=== PATIENT | female | born 1975 | race Caucasian/White ===

== ENCOUNTER → 2024-04-20 12:54 | Emergency (ER) | payer OTHER, SELFPAY ==
[2024-04-20 12:56] VITALS: BP 128/74
--- NOTE | 2024-04-20 14:11 | ED.GENMED ---
History of Present Illness
General
Chief Complaint: Visual Problem
Time Seen by Provider: 04/20/24 13:28
History of Present Illness
History of Present Illness:
Patient is a 48-year-old woman presenting to the emergency department with vision changes. She states that yesterday she took her first dose of prednisone. Last night noticed that her eyes were bothering her thought it was dry eyes and placed
eyedrops. Today she had a starting reading a book when she noticed she was having some flashers floaters and some sun spots. 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
then she has had some pressure behind her eyes. She has been seeing some floaters. No numbness tingling. No weakness. No dysarthria or word finding difficulty. She is never had migraines before. She currently is back to baseline though has
some floaters. Is never happened to her before. No history of heart problems. No history of stroke she also has a rash that she has been taking doxycycline and prednisone for. She started taking doxycycline 3 days ago. It has drastically
improved. She does state that occurred after mosquito bite. She is following up with PCP regarding it.
Past History
Past History
ED Past Medical History: Other (Mitral valve prolapse) and Other (Holter monitor placed summer 2018)
ED Past Surgical History: Orthopedic
Social History
Tobacco: Non-smoker
Alcohol: None
Drug: None
Family History
Family History: Other; Negative Early CAD
Phy Exam
Physical Exam
Physical Exam:
GENERAL: in no acute distress
HEENT: normocephalic, extraocular movements intact, visual wisdom intact, moist oral mucosa
NECK: normal inspection
RESPIRATORY: no respiratory distress, clear to auscultation bilaterally
CARDIOVASCULAR: regular rate and rhythm
ABDOMEN/: soft, non-distended, non-tender to palpation, no rebound or guarding
EXTREMITIES: non-tender, no edema/swelling, left lower extremity posteriorly with small erythematous area with no bull's-eye lesion, no drainage, no vesicles
NEUROLOGIC: alert and oriented x 3, cranial nerves II-XII intact, right upper extremity strength 5/5, left upper extremity strength 5/5, right lower extremity strength 5/5, left lower extremity strength 5/5, normal sensation to light touch, normal
xsxtwy-ev-ucam and jjlr-wp-wypv, gait not tested formally
SKIN: warm
Course
Orders/Labs/Results
Orders:
Orders
04/20/24 14:24
Diphenhydramine [Benadryl] 25 mg IV NOW STA
Ketorolac [Toradol] 15 mg IV NOW STA
Metoclopramide [Reglan] 10 mg IV NOW STA
04/20/24 14:25
CT Head W/o Iv Contrast Urgent
Comment:
Reason For Exam: headache
04/20/24 15:17
Basic Metabolic Panel Urgent
Complete Blood Count/With Diff Urgent
Lyme Progressive Urgent
Abnormal Lab Results
04/20/24
15:17
WBC 12.5 H 10^3/uL
(4.8-10.8)
RBC 3.85 L 10^6/uL
(4.20-5.40)
Hct 36.3 L %
(37.0-47.0)
MCH 33.8 H pg
(27.0-31.0)
RDW 11.4 L %
(11.5-14.5)
MPV 11.2 H fL
(7.4-10.4)
Absolute Neuts (auto) 10.2 H 10^3/uL
(1.4-6.5)
Neutrophils % 81.4 H %
(42.2-75.2)
Lymphocytes % 13.3 L %
(20.5-51.1)
BUN 19 H mg/dl
(7-17)
Glucose 104 H mg/dl
(70-99)
04/20/24 15:17
04/20/24 15:17
Vital Signs
Initial and Last Documented VS:
Initial Vital Signs
Temp Pulse Resp BP Pulse Ox
99.1 F 101 16 128/74 98
04/20/24 12:56 04/20/24 12:56 04/20/24 12:56 04/20/24 12:56 04/20/24 12:56
Last Documented Vital Signs
Temp Pulse Resp BP Pulse Ox
99.1 F 101 16 128/74 98
04/20/24 12:56 04/20/24 12:56 04/20/24 12:56 04/20/24 12:56 04/20/24 12:56
MDM/Problems Addressed
Differential Diagnosis Includes:
Patient is a 48-year-old woman presenting to the emergency department with vision changes and a headache. Vital signs are unremarkable and exam does not show any neurodeficits.
Patient is complaining of pressure behind her eyes as well as some floaters. Could be is migraine with aura or complex migraine or ocular migraine. Considered TIA though less likely as patient is otherwise healthy. Could be pituitary echopraxia
given the peripheral vision loss bilaterally though it is reassuring that she regained the vision. I did discuss with on-call neurology who is in agreement that it is less likely to be a TIA given that she has no risk factors. Will proceed with
blood work and give a migraine cocktai as well as obtain CT scan of the head.
*Critical Care Note
Total Time (30-74mins, 75-104mins- exclusive of procedures): Not Applicable
Update Note
Update Note:
CT scan of the head without any acute abnormalities. Blood work is notable for white count of 12.5 likely from the skin infection that she is on antibiotics for. Lyme testing pending at this time. After patient received a migraine cocktail
patient states that she immediately felt a relief in both the pressure behind her eyes and the floaters have now resolved. This is likely consistent with a migraine. Given that symptoms have now resolved will discharge at this time with PCP
follow-up. Strict return precautions given
ED Attending Note
-
Portions of this chart may have been created with voice recognition software.� Occasional wrong word or��sound alike� substitutions may have occurred due to the inherent limitations of voice recognition software.
Discharge Plan
Departure
Patient Disposition: Home (Routine Discharge)
Date of Disposition: 04/20/24
Time of Disposition: 17:28
Patient with high blood pressure during this ER visit?: No
Discharge Problem:
Change in vision, Migraine with aura
Instructions: Migraines (DC)
Prescriptions:
No Action
ascorbic acid (vitamin C) [Vitamin C] 500 MG tablet
1,000 mg PO TID
omega 0-eoo-vec-fish oil 1 EACH capsule
2 ea PO BID
cholecalciferol (vitamin D3) 10,000 UNIT tablet
10,000 unit PO DAILY
Calcium
1 tab PO TID
Liver Support
1 tab PO TID
Thyroid Support
2 tab PO DAILY
Referrals:
PRIVATE,PHYSICIAN [Family Provider] -
Activity Restrictions/Additional Instructions:
You were seen in the Emergency Department today for vision changes and pressure behind your eyes. While you were here we performed blood work and CT scan, which was reassuring. Please make sure you follow-up about your lyme results.
We would like for you to follow up with your primary care physician for further evaluation. If you experience fever, worsening of your symptoms, or develop any other new or concerning symptoms, please return to the Emergency Department immediately.
Please see the attached sheet for additional information.
Interventions
Interventions:
*Risk Screen - Suicide Last Done: 04/20/24 12:56
*General Assessment Last Done: 04/20/24 12:56
*Neglect/Abuse Screening Last Done: 04/20/24 12:56
*ED COVID-19 Vaccine History Last Done: 04/20/24 12:56
Discharge Date and Time
Print Language: KOSOVAN
[2024-04-20] MEDS: TORADOL 15 MG IV (15:36)
[2024-04-20] MEDS: BENADRYL 25 MG IV (15:36)
[2024-04-20] MEDS: REGLAN 10 MG IV (15:37)
[2024-04-20 15:53] LABS: % Basophils 0.3 % (0-2); % Eosinophils 0.6 % (0-6); % Immature Granulocytes 0.2 % (0-0.5); % Lymphocytes 13.3 % (20.5-51.1); % Monocytes 4.2 % (1.7-9.3); % Neutrophils 81.4 % (42.2-75.2); Absolute Eosinophils 0.1 10^3/uL (0-0.7); Absolute Lymphocytes 1.7 10^3/uL (1.2-3.4); Absolute Monocytes 0.5 10^3/uL (0.1-0.6); Absolute Neutrophils 10.2 10^3/uL (1.4-6.5); Hematocrit 36.3 % (37.0-47.0); Mean Corp Hgb Conc. 35.8 g/dL (33.0-37.0); Mean Corpuscular Hgb 33.8 pg (27.0-31.0); Mean Corpuscular Volume 94.3 fL (81.0-99.0); Mean Platelet Volume 11.2 fL (7.4-10.4); Nucleated Red Blood Cells % 0 %; Platelet Count 311 10^3/uL (130-400); Red Blood Cell Count 3.85 10^6/uL (4.20-5.40); Red Cell Dist. Width 11.4 % (11.5-14.5); White Blood Cell Count 12.5 10^3/uL (4.8-10.8)
[2024-04-20 16:07] LABS: Blood Urea Nitrogen 19 mg/dl (7-17); Calcium 9.8 mg/dl (8.4-10.2); Carbon Dioxide 23 mmol/L (22-30); Chloride 105 mmol/L (98-107); Glucose 104 mg/dl (70-99); Potassium 4.1 mmol/L (3.5-5.1); Sodium 138 mmol/L (135-145); eGFR > 60.00
[2024-04-22 14:39] LABS: Lyme Antibody Screen, EIA Negative (Negative)
== END | disposition home or self-care (01) ==
LOC: EMR 12:54
PROVIDERS: EMERGENCY PHYSICIAN Student in an Organized Health Care Education/Training Program
DX: G43.109 Migraine with aura, not intractable, without status migrainosus (principal); H53.9 Unspecified visual disturbance
CPT/HCPCS: 99284; 96374; 96375 ×2; 70450; 80048; 85025; 86618

== ENCOUNTER 2024-06-09 00:29 | Emergency (ER) | payer OTHER, SELFPAY ==
[2024-06-09 00:43] VITALS: BP 98/69
--- NOTE | 2024-06-09 01:12 | ED.MUSCINJ ---
HPI-Injury
General
Chief Complaint: Musculo-Skeletal Complaint
Source: patient
Exam Limitations: none
Time Seen by Provider: 06/09/24 00:56
History of Present Illness-Injury
Is this injury a work related problem?: No
Is pt an associate of [facility]?: No
Initial Injury comments:
This is a 49 year old female that comes in with c/o injury to right wrist/hand. States that around 2:45pm she was braking a board with her hand. States that this was thicker then she has normally broken in the past. States that this is something
that she does. States that she must have really hit the board and at first she was able to move her hand but there was some swelling. States that as the hours went on she felt like the mobility was decreasing and she had pain on the lateral aspect
of her hand. States that the pain was also increasing. Denies any fever, chills, nausea, vomiting, diarrhea, headache, dizziness.
Past History
Past History
ED Past Medical History: Arrthythmia (Atrial fib) and Other (Mitral valve prolapse, thyroid nodules that they watch )
ED Past Surgical History: Orthopedic (Left shoulder surgery)
Social History
Tobacco: Former smoker
Alcohol: None
Drug: None
Family History
Family History: Other; Negative Early CAD
Review of Systems
Review of Systems
All Other Systems: ROS reviewed and negative except as documented in HPI and ROS
Constitutional: Reports no symptoms; Denies fever or chills
EENT: Reports no symptoms
Respiratory: Reports no symptoms
Cardiac: Reports no symptoms
ABD/GI: Reports no symptoms; Denies abdominal pain, nausea, vomiting or diarrhea
: Reports no symptoms
Musculoskeletal: Reports other (Right hand pain and swelling)
Skin: Reports no symptoms
Neurological: Reports no symptoms; Denies dizzy or headache
Psychiatric: Reports no symptoms
Musculoskeletal Injury Exam
Musculoskeletal Injury Exam
Right Lateral Hand:
Pain with Movement?: Mild
Tender to palpation?: Mild
Soft tissue swelling?: Mild
External deformity and angulation?: None
Joint effusion?: None
Contusion?: None
Hematoma-local bleeding into tissue?: None
Strain- Sprain- Tear (Connective tissue injury)?: None
Crepitus with movement?: No
Joint instability?: No
Malalignment/deformity?: No
Range of motion: Limited (Due to pain)
Distal skin color and temperature: normal-warm & good color
Capillary Refill: normal
Normal distal neurovascular exam?: Yes
Phy Exam
General Physical Exam
General Presentation: well appearing and no apparent distress
General age: appears stated age
General Skin: warm and dry
General Habitus: normal
General Mental: alert
General Hydration: appears well hydrated
Eye Exam
Eye Exam: EOMI
Musculoskeletal Exam
Musculoskeletal Exam: other (right later hand swelling and tenderness with palpation up into the distal wrist. able to move fingers and flex wrist with slight discomfort. )
Skin Exam
Skin Exam: normal color, warm/dry and no rash
Psychiatric Exam
Psychiatric Exam: normal mood/affect
Injury Course
Orders/Labs/Results
Orders:
Orders
06/09/24 00:30
CR Wrist - Right Min 3 Views Urgent
Comment:
Reason For Exam: injury, pain
06/09/24 01:26
Downing Wrist Right-Tx ONCE
MDM/Problems Addressed
Differential Diagnosis Includes:
Hand/wrist contusion. Hand/wrist fracture.
MDM/Problems Addressed:
This is a 49 year old female that comes in with c/o right hand and wrist discomfort. States that she was braking a board with her hand. States that this was thicker then she normally brake and she really hit the board.
Will get X-ray.
Back into see patient Explained that there are no obvious fractures or dislocation. Will place a universal splint and have patient use Tylenol or Ibuprofen for pain and ice. Return with any concerns.
Chronic conditions affecting care:
NA
Acute Exacerbation and/or Progression of Chronic Illness:
NA
*Radiology
Radiology exam reviewed: preliminary read by ED provider (Hand/wrist=negative for any fractures or dislocation. ) and radiology read reviewed (Hand-NO evidence of acute fracture or dislocation. IF there are persistent clinical symptoms and further
imaging evaluation is desired, consider MRI. )
*Pulse Oximetry
Patient hypoxic: no
*EKG
Interpreted by ED Provider?: NA
Rate: EKG- N/A
*Telegraph Operator Interpretation
Rate: Telegraph Operator- N/A
*Critical Care Note
Total Time (30-74mins, 75-104mins- exclusive of procedures): Not Applicable
ED Attending Note
-
Portions of this chart may have been created with voice recognition software.� Occasional wrong word or��sound alike� substitutions may have occurred due to the inherent limitations of voice recognition software.
Discharge Plan
Departure
Patient Disposition: Home (Routine Discharge)
Date of Disposition: 06/09/24
Time of Disposition: 01:24
Patient with high blood pressure during this ER visit?: No
Condition: Good
Covid-19: Not Applicable
Discharge Problem:
Contusion of hand, right
Instructions: Contusion (DC)
Activity Restrictions/Additional Instructions:
As discussed, your X-ray appears negative for any fractures or dislocation. This will be read in the morning by the radiologist and it there is anything different you will be called. Please use Tylenol or Ibuprofen for pain. You have been given a
universal splint to help give the hand and wrist support. Ice to the area that is sore . IF YOU HAVE ANY OTHER CONCERNS PLEASE RETURN TO THE EMERGENCY ROOM.
Interventions
Interventions:
*Risk Screen - Suicide Last Done: 06/09/24 00:43
*General Assessment Last Done: 06/09/24 00:43
*Neglect/Abuse Screening Last Done: 06/09/24 00:43
ED- Fall Risk Assessment Last Done: 06/09/24 01:19
*ED COVID-19 Vaccine History Last Done: 06/09/24 01:24
ED-Musculoskeletal Assessment Last Done: 06/09/24 01:20
Discharge Date and Time
Print Language: FRENCH
[2024-06-09 01:15] VITALS: BMI 17.4
== END 2024-06-09 01:30 | disposition home or self-care (01) ==
LOC: EMR 00:29
PROVIDERS: EMERGENCY PHYSICIAN Student in an Organized Health Care Education/Training Program
DX: S60.221A Contusion of right hand, initial encounter (principal); X58.XXXA Exposure to other specified factors, initial encounter; Y93.89 Activity, other specified; I48.91 Unspecified atrial fibrillation; I34.1 Nonrheumatic mitral (valve) prolapse; E04.2 Nontoxic multinodular goiter; Z87.891 Personal history of nicotine dependence
CPT/HCPCS: 99283; 29125; 73110

== ENCOUNTER 2025-04-05 11:16 | Emergency (ER) | payer OTHER, SELFPAY ==
[2025-04-05 11:17] VITALS: BP 146/81
--- NOTE | 2025-04-05 15:18 | ED.GENMED ---
History of Present Illness
General
Chief Complaint: Headache
Time Seen by Provider: 04/05/25 15:04
History of Present Illness
History of Present Illness:
49-year-old female with no significant past medical history presents to the emergency department for evaluation of severe headaches that developed during physical exertion particularly pull-ups. She states that today the symptoms escalated and it
was 'the worst headache of my life'. Headache remains at this time, not as severe as earlier in the day. Typically his headaches will resolve after resting, has noticed them for the past 2 to 3 weeks. No vision changes, neck pain, or fever
Past History
Past History
ED Past Medical History: Arrthythmia (Atrial fib) and Other (Mitral valve prolapse, thyroid nodules that they watch )
ED Past Surgical History: Orthopedic (Left shoulder surgery)
Social History
Tobacco: Former smoker
Alcohol: None
Drug: None
Family History
Family History: Other; Negative Early CAD
Review of Systems
Review of Systems
Allergies reviewed?: Yes
All Other Systems: ROS reviewed and negative except as documented in HPI and ROS
Phy Exam
Physical Exam
Physical Exam:
GEN: Well appearing, NAD, WDWN
HEENT: Oral mucosa moist, no scleral icterus
Cardiac: Regular rate
Lung: No respiratory distress, no tachypnea
MSK: No gross deformity or injuries
Skin: Good color, no pallor or jaundice, no rashes
Neuro: AO x3, moves all extremities freely
Psych: Calm, cooperative
Course
Orders/Labs/Results
Orders:
Orders
04/05/25 15:17
CT Head & Neck Angio W/wo IV Urgent
Comment:
Reason For Exam: R sided headache with exertion/Valsalva
Test Result ONCE
04/05/25 16:05
Complete Blood Count/No Diff Urgent
Comprehensive Metabolic Panel Urgent
HCG, Serum Qualitative Screen Urgent
Abnormal Lab Results
04/05/25
16:05
RBC 3.65 L 10^6/uL
(4.20-5.40)
Hct 34.8 L %
(37.0-47.0)
MCH 32.9 H pg
(27.0-31.0)
MPV 10.9 H fL
(7.4-10.4)
Chloride 108 H mmol/L
(98-107)
Alkaline Phosphatase 30 L U/L
(38-126)
04/05/25 16:05
04/05/25 16:05
Vital Signs
Initial and Last Documented VS:
Initial Vital Signs
Temp Pulse Resp BP Pulse Ox
98.2 F 95 18 146/81 99
04/05/25 11:17 04/05/25 11:17 04/05/25 11:17 04/05/25 11:17 04/05/25 11:17
Last Documented Vital Signs
Temp Pulse Resp BP Pulse Ox
98.2 F 70 16 102/76 98
04/05/25 11:17 04/05/25 18:30 04/05/25 18:30 04/05/25 18:00 04/05/25 18:30
MDM/Problems Addressed
MDM/Problems Addressed:
Patient was sent for CT angiogram of the head and neck due to exertional headaches with a concern for intracranial aneurysm however the study was unremarkable for acute process. I do not feel that the hypoplasia of the right vertebral artery
reliably explains her symptoms. Given that there is some degree of cervical discogenic disease, her symptoms may be attributable to radiculopathy based on positioning while doing pull-ups. Recommend activity modification and outpatient follow-up
*Pulse Oximetry
SaO2: 99
Oxygen Mode of Delivery: Room air
Patient hypoxic: no
*Critical Care Note
Total Time (30-74mins, 75-104mins- exclusive of procedures): Not Applicable
ED Attending Note
-
Portions of this chart may have been created with voice recognition software.� Occasional wrong word or��sound alike� substitutions may have occurred due to the inherent limitations of voice recognition software.
Discharge Plan
Departure
Patient Disposition: Home (Routine Discharge)
Date of Disposition: 04/05/25
Time of Disposition: 18:32
Patient with high blood pressure during this ER visit?: No
Discharge Problem:
Exertional headache
Instructions: Headache, Adult (DC)
Referrals:
Ailyn Murphy MD [Family Provider, Family Practice]
Activity Restrictions/Additional Instructions:
If headaches worsen, consider follow up with your primary doctor for an MRI
Interventions
Interventions:
*Risk Screen - Suicide Last Done: 04/05/25 11:17
*General Assessment Last Done: 04/05/25 11:17
*Neglect/Abuse Screening Last Done: 04/05/25 16:06
*ED- Fall Risk Assessment Last Done: 04/05/25 16:06
*ED COVID-19 Vaccine History Last Done: 04/05/25 16:06
*Nursing Disposition Last Done: 04/05/25 19:08
ED- Neurological Assessment Last Done: 04/05/25 16:10
Discharge Date and Time
Discharge Date/Time: 04/05/25 19:09
Print Language: KOSOVAN
[2025-04-05 15:56] VITALS: BMI 23.9
[2025-04-05 16:20] VITALS: BP 115/72
[2025-04-05 16:23] LABS: Hematocrit 34.8 % (37.0-47.0); Hemoglobin 12.0 g/dL (12.0-16.0); Mean Corp Hgb Conc. 34.5 g/dL (33.0-37.0); Mean Corpuscular Volume 95.3 fL (81.0-99.0); Platelet Count 256 10^3/uL (130-400); Red Cell Dist. Width 11.5 % (11.5-14.5)
[2025-04-05 16:31] LABS: HCG, Serum Qualitative Screen Negative
[2025-04-05 16:38] LABS: ALT (SGPT) 16 U/L (0-35); AST (SGOT) 21 U/L (14-36); Albumin 4.6 g/dl (3.5-5.0); Alkaline Phosphatase 30 U/L (38-126); Blood Urea Nitrogen 17 mg/dl (7-17); Calcium 9.0 mg/dl (8.4-10.2); Carbon Dioxide 24 mmol/L (22-30); Chloride 108 mmol/L (98-107); Estimated Creatinine Clearance 81 ml/min; Glucose 78 mg/dl (70-99); Potassium 3.9 mmol/L (3.5-5.1); Sodium 139 mmol/L (135-145); Total Protein 7.1 g/dl (6.3-8.2); eGFR > 60.00
[2025-04-05 17:07] VITALS: BP 106/65
[2025-04-05 18:00] VITALS: BP 102/76
== END 2025-04-05 19:09 | disposition home or self-care (01) ==
LOC: EMR 11:16
PROVIDERS: Physician Assistant; EMERGENCY PHYSICIAN Emergency Medicine; FAMILY PHYSICIAN Family Medicine
DX: G44.84 Primary exertional headache (principal); I48.91 Unspecified atrial fibrillation; I34.1 Nonrheumatic mitral (valve) prolapse; E04.2 Nontoxic multinodular goiter; M50.20 Other cervical disc displacement, unspecified cervical region; Z87.891 Personal history of nicotine dependence; Z88.8 Allergy status to other drugs, medicaments and biological substances
CPT/HCPCS: 99284; 70496; 70498; 80053; 84703; 85027; Q9967